=== PATIENT | male | born 1960 | race African-American/Black ===

== ENCOUNTER → 2021-08-30 | Day surgery (SDC) | payer OTHER ==
[~2021-08-30] VITALS: Ht 172.7 cm; Wt 108.9 kg
[~2021-08-30] MED LIST: ADVIL200 M1 PO; ASPIRIN325 MG PO; BACLOFEN 10MG T10 MG PO; CETIRIZINE HCL10 MG PO; COZAAR 25MG TAB25 MG PO; DICLOFENAC PO; FLONASE ALLER15.8 ML; HYDROCHLOROT PO; IBUPROFEN800 MG PO; LIPITOR 10MG TA10 MG PO; MOBIC7.5 MG PO; NAPROXEN500 MG PO; PERCOCET 5-3251 EACH PO; SINGULAIR10 MG PO
== END | disposition home or self-care (01) ==
LOC: FAS 06:02
DX: M16.0 Bilateral primary osteoarthritis of hip (principal); I10 Essential (primary) hypertension; E78.00 Pure hypercholesterolemia, unspecified; G47.30 Sleep apnea, unspecified; E78.5 Hyperlipidemia, unspecified; Z99.89 Dependence on other enabling machines and devices; Z79.1 Long term (current) use of non-steroidal anti-inflammatories (NSAID); Z79.899 Other long term (current) drug therapy
CPT/HCPCS: 76000; J1040; J2001; J2250; J2704; J7120; Q9967

== ENCOUNTER → 2022-04-10 | Day surgery (SDC) | payer OTHER ==
[~2022-04-10] VITALS: Ht 172.7 cm; Wt 106.6 kg
[~2022-04-10] MED LIST changes: +AMOXICILLIN500 M2 PO
== END | disposition home or self-care (01) ==
LOC: FAS 06:13
DX: M16.0 Bilateral primary osteoarthritis of hip (principal); I10 Essential (primary) hypertension; E78.00 Pure hypercholesterolemia, unspecified; Z79.899 Other long term (current) drug therapy
CPT/HCPCS: 76000; J1040; J2001; J2250; J2704; J7120; Q9967